=== PATIENT | male | born 1995 | race Caucasian/White ===

== ENCOUNTER 2024-10-05 19:34 | Emergency (ER) | payer OTHER, SELFPAY ==
[2024-10-05 19:49] VITALS: BP 163/91; PULSE 80; RESP 16; TEMP 36.7; O2SAT 99; BMI 23.2
--- NOTE | 2024-10-05 19:49 | ED.GENADULT ---
HPI - General Adult General Chief complaint: Urogenital-Male Stated complaint: Med side effects Time Seen by Provider: 10/05/24 20:21 Source: patient, RN notes reviewed and old records reviewed Mode of arrival: ambulatory History of Present Illness ED Provider: Marcie Caba PA-C HPI narrative: 28-year-old male with a past medical history substance abuse currently on Suboxone, presenting to the ED c/o urinary hesitancy/decreased urination & sexual dysfunction x years which he attributes to his Rx Suboxone and Fluoxetine. Admits he has been taking Suboxone x2 years, has taken Prozac intermittently in the past, however restarted a few months ago, states being on both medications at the same time is new. Requesting node explaining why it takes him so long to urinate as he is currently required to provide frequent drug screens, in his sometimes unable to due to these complaints. Denies ever seeing Urology or discussing side effects with prescriber. Denies abdominal pain, dysuria, hematuria, nausea, vomiting, fever Related Data Allergies Allergy/AdvReac Type Severity Reaction Status Date / Time haloperidol [From Haldol] AdvReac Difficulty Verified 10/05/24 19:52 Swallowing Review of Systems Review of Systems: Yes all other systems are reviewed and are negative Constitutional: Constitutional: Reports as per HPI [facility] Past Medical History Attestation statement: The following information was validated with the patient. Source: old records reviewed Social History Social History Advance Directives: No Advance Directives Information Provided: No Do you have a plan to hurt others: No Plan Physical Exam ED Vital Signs: Vital Signs - 24 hr 10/05/24 19:49 10/05/24 20:59 10/05/24 21:08 Temperature 98.1 F 98 F 98 F Pulse Rate 80 70 70 Respiratory Rate 16 18 18 Blood Pressure 163/91 H 151/80 H 151/80 H Pulse Oximetry 99 99 99 Oxygen Delivery Method Room Air Room Air Room Air BMI result Body Mass Index 23.2 Const General: cooperative, healthy appearing and no acute distress Orientation/consciousness: patient oriented x3 Limitations: no limitations HENMT Head: Yes normal to inspection and Yes atraumatic Ears: hearing grossly normal bilaterally General nose exam: Normal external nose present Face and sinus: Yes normal facial exam Eyes General: appearance normal, both eyes and all related structures EOM: EOMs intact bilaterally Neck Neck: Yes normal visual inspection and Yes no meningeal signs Resp Effort & Inspection: normal respiratory effort and no respiratory distress Cardio Rate: regular rate GI Inspection: Yes normal to inspection Palpation (GI): Soft to palpation, nontender, no guarding and not rigid General: Yes no CVA tenderness Back/Spine/Pelvis Back: no CVA tenderness Skin Rashes: no rashes Wounds: no wounds Neuro General: patient oriented x3, tone normal and no meningeal signs Cranial nerves: Yes CN's II-XII intact bilaterally Gait exam (Neuro): Normal gait present Extrem General: Yes normal to inspection Course Course Course Narrative: RME performed by Elly Stock PA-C. Patient is a 28 year old assigned male at presenting to the emergency department with difficulty urinating. Patient states he has been on Suboxone and Fluoxetine for years and has had issues with urination and ejaculation the entire time. He states that for court he now needs to do regular drug testing but he is having issues urinating in the time frame they require because of the difficulty urinating. Patient states that he would like PCP resources, mental health resources, and a note for court. Detailed physical exam and review of systems are deferred to the fishing hand. Labs ordered. Patient placed back in the waiting room pending room availability and results. -labs reassuring. UA negative -postvoid residual 20ml > discussed with patient at length needed close follow up with Urology as well as his psych medication prescriber due to side effects which he has been experiencing for years. Results discussed with patient including worrisome signs and symptoms and strict return precautions, and when to return to the emergency department. They verbalized understanding and feel safe for discharge at this time. Medical Decision Making Medical Decision Making MDM Narrative: 28-year-old male with a past medical history substance abuse currently on Suboxone, presenting to the ED c/o urinary hesitancy/decreased urination & sexual dysfunction x years which he attributes to his Rx Suboxone and Fluoxetine. On exam vital signs stable, NAD, nontoxic appearing, abdomen soft and nontender, no CVAT. Concern for medication side effects vs UTI vs ROXANNE. Lower suspicion for renal stone, pyelo, testicular torsion. Plan: Labs, UA Please refer to course for remaining clinical decision making, interpretation of labs/imaging results, and discussions with consultants and/or family members. Differential Diagnosis Differential Diagnoses: The differential diagnosis associated with the presentation includes As above Admission/Observation Consideration of admission/observation: Escalation of care including admission/observation considered Lab Data MDM Lab Attestation statement: I reviewed the patient's lab results. 10/05/24 20:03 10/05/24 20:03 Labs: Lab Results 10/05/24 10/05/24 Range/Units 20:03 20:15 WBC 8.6 (4.8-10.8) X10*3/uL RBC 4.23 L (4.60-5.80) X10*6/uL Hgb 13.4 L (14.0-18.0) g/dl Hct 37.9 L (42.0-52.0) % MCV 89.6 (80.0-98.0) fL MCH 31.7 (27.0-33.0) pg MCHC 35.4 (31.0-36.0) g/dl RDW 11.9 (11.0-16.0) % Plt Count 205 (160-400) X10*3/uL MPV 9.6 (9.4-12.4) fL Immature Gran % (Auto) 0.1 (0.0-0.4) % Neut % (Auto) 57.2 (45-73) % Lymph % (Auto) 32.4 (20-40) % [place] % (Auto) 8.3 (2-11) % Eos % (Auto) 1.8 (0-4) % Baso % (Auto) 0.2 (0-2) % Lymph # (Auto) 2.8 (1.2-4.9) X10*3/uL [place] # (Auto) 0.7 (0.1-1.2) X10*3/uL Eos # (Auto) 0.2 (0.0-0.4) X10*3/uL Baso # (Auto) 0.0 (0.0-0.2) X10*3/uL Abs Immat Gran (auto) 0.01 (0.00-0.03) X10*3/uL Absolute Neuts (auto) 4.9 (2.0-8.3) x10*3/uL Absolute Nucleated RBC 0.000 (0.0-0.012) X10*3/uL Nucleated RBC % (auto) 0.0 (0.0-0.2) /100WBC Sodium 142 (135-145) mmol/L Potassium 4.0 (3.3-5.1) mmol/L Chloride 105 (96-108) mmol/L Carbon Dioxide 28 (22-29) mmol/L Anion Gap 13 (12-20) BUN 16 (9-16) mg/dL Creatinine 1.03 (0.5-1.4) mg/dL Estim Creat Clear Calc 80.9 Estimated GFR > 60 Random Glucose 109 (60-115) mg/dL Calcium 9.2 (8.4-10.2) mg/dL Total Bilirubin 0.2 (0.0-1.0) mg/dL AST 30 (5-37) U/L ALT 30 (0-40) U/L Alkaline Phosphatase 59 (39-117) U/L Total Protein 6.9 (6.5-8.0) g/dL Albumin 4.4 (3.5-5.0) g/dL Urine Color Yellow Urine Appearance Clear Urine pH 8.0 (5.0-9.0) Ur Specific [place] 1.025 (1.005-1.025) Urine Protein 30 (1+) H (Neg-Trace) mg/dL Urine Glucose (UA) Negative (Negative) mg/dL Urine Ketones Trace (Negative) mg/dL Urine Blood Negative (Negative) Urine Nitrite Negative (Negative) Ur Leukocyte Esterase Negative (Negative) Urine RBC 0-2 (0-2) /HPF Urine WBC 0-5 (0-5) /HPF Ur Squamous Epith Cells 0-2 (0-2) /HPF Urine Bacteria None Seen (None Seen) Hyaline Casts 0-2 (0-2) /LPF Radiology Impression Discussion of test interpretation with radiology: I have reviewed the radiologist's reading. External Record Review External record reviewed: Inpatient record, Office record, Outpatient record, Prior outpatient labs, Prior outpatient radiology, Primary care record and Outside ED record Tests considered The following testing was considered but not selected: As above Prescription Management I considered prescription management with: Other Chronic Conditions Patient?s care impacted by: Other Social Determinants Patient?s care significantly limited by Social Determinants of Health including: Alcoholism and drug addiction in family Discharge Plan Discharge Clinical Impression: Urinary hesitancy Patient Disposition: Home, Self-Care Instructions: Urinary Urgency and Frequency (DC) Additional Instructions: Your blood work and urine are reassuring It is important for you to establish care with a primary care doctor. You should also follow up with Urology. Discussed your current symptoms with your medication prescriber. If symptoms persist or worsen, you burning when you pee, blood in the urine, abdominal pain or back pain return to the ED Your requested information for a primary care provider and mental health resources. Mental health resources are below and I've attached information for a PCP that is taking new patients. [facility]: Available 24 hours a day, 7 days a week, 365 days a year Dial 988 with any telephone to speak to someone immediately [facility] (Mental / Behavioral health therapist: [address], [place] [phone] [facility] ([facility] at [facility]: [address] [place] [address] Open from 10am - 12pm (walk ins welcome) [facility] Crisis Services: [address] [place] [address] Walk in hours from 10am - 12pm Behavioral health Network: [address] [place] [id number] AND [address] [place] [phone] Monday through Monday 8am - 8pm Monday and Monday 9am - 5pm Referrals: [facility] Primary Care, Galindo Lema [Provider Group] (Call to establish and follow up with a primary care provider.) [facility] Urology Services [Provider Group] - 5 days Stand Alone Forms: Work/School Release Interventions: ED Discharge Assessment Last Done: 10/05/24 21:08 Discharge Date/Time: 10/05/24 21:09 Print Language: Hungarian
[2024-10-05 20:10] LABS: MANUAL DIFF FLAG NO
[2024-10-05 20:11] LABS: Basophils Percent Auto 0.2 % (0-2); Eosinophils Absolute Auto 0.2 X10*3/uL (0.0-0.4); Eosinophils Percent Auto 1.8 % (0-4); Hematocrit 37.9 % (42.0-52.0); Hemoglobin 13.4 g/dl (14.0-18.0); Imm Gran Abs Auto 0.01 X10*3/uL (0.00-0.03); Imm Gran Pct Auto 0.1 % (0.0-0.4); Lymphocytes Absolute Auto 2.8 X10*3/uL (1.2-4.9); Lymphocytes Percent Auto 32.4 % (20-40); Mean Corpuscular HGB Conc 35.4 g/dl (31.0-36.0); Mean Corpuscular Hemoglobin 31.7 pg (27.0-33.0); Mean Corpuscular Volume 89.6 fL (80.0-98.0); Mean Platelet Volume 9.6 fL (9.4-12.4); Monocytes Absolute Auto 0.7 X10*3/uL (0.1-1.2); Monocytes Percent Auto 8.3 % (2-11); Neutrophils Absolute Auto 4.9 x10*3/uL (2.0-8.3); Neutrophils Percent Auto 57.2 % (45-73); Platelet Count 205 X10*3/uL (160-400); Red Blood Count 4.23 X10*6/uL (4.60-5.80); Red Cell Distribution Width 11.9 % (11.0-16.0); White Blood Count 8.6 X10*3/uL (4.8-10.8)
[2024-10-05 20:21] LABS: Appearance Urine Clear; Color Urine Yellow; Glucose Urine UA Negative (Negative); Leukocyte Esterase Urine Negative (Negative); Nitrite Urine Negative (Negative); Specific Gravity - Urine 1.025 (1.005-1.025); UMIC TRIGGER UACC YES; Urine Blood Negative (Negative); Urine Ketones Trace mg/dL (Negative); Urine Protein 30 (1+) mg/dL (Neg-Trace)
--- NOTE | 2024-10-05 20:22 | PC.NURSE ---
pt reports he is having trouble urinating after started new medication. pt reports he does not have pain with urination but it takes 5-10 minutes to start a stream of urine. pt able to void for urine sample, bladder scan obtained of 20ml after urination.
[2024-10-05 20:23] LABS: Bacteria Urine None Seen (None Seen); Hyaline Casts Urine 0-2 /LPF (0-2); RBC Urine 0-2 /HPF (0-2); Squamous Epithelial Cell Urine 0-2 /HPF (0-2); WBC Urine 0-5 /HPF (0-5)
[2024-10-05 20:24] LABS: Alanine Aminotransferase 30 U/L (0-40); Albumin Level 4.4 g/dL (3.5-5.0); Alkaline Phosphatase 59 U/L (39-117); Anion Gap 13 (12-20); Aspartate Amino Transferase 30 U/L (5-37); Bilirubin Total 0.2 mg/dL (0.0-1.0); Blood Urea Nitrogen 16 mg/dL (9-16); Calcium 9.2 mg/dL (8.4-10.2); Carbon Dioxide 28 mmol/L (22-29); Chloride 105 mmol/L (96-108); Creatinine Clr Calc Pharmacy 80.9; Estimated Glomerular Filt Rate > 60; Glucose Random 109 mg/dL (60-115); Sodium 142 mmol/L (135-145); Total Protein 6.9 g/dL (6.5-8.0)
[2024-10-05 20:59] VITALS: BP 151/80; PULSE 70; RESP 18; TEMP 36.6; O2SAT 99
[2024-10-05 21:08] VITALS: BP 151/80; PULSE 70; RESP 18; TEMP 36.6; O2SAT 99
== END 2024-10-05 21:09 | disposition home or self-care (01) ==
PROVIDERS: Physician Assistant Medical; Emergency Provider Emergency Medicine
DX: R39.11 Hesitancy of micturition (principal); F11.20 Opioid dependence, uncomplicated; Z79.899 Other long term (current) drug therapy
CPT/HCPCS: 36415; 80053; 81001; 85025; 99283

== ENCOUNTER → 2025-03-20 23:14 | Outpatient (BNV) | payer OTHER, SELFPAY | PROVIDERS: Emergency Provider Emergency Medicine; Visit Provider Radiology Diagnostic Radiology | DX: M54.2 Cervicalgia (principal) | CPT/HCPCS: 70360 ==

== ENCOUNTER 2025-03-20 23:43 | Emergency (ER) | payer OTHER, SELFPAY ==
--- NOTE | ~2025-03-20 | XR_ITS ---
CLINICAL HISTORY: ? foreing body Neck soft tissue 2 views Comparison: None Provided Findings: Epiglottis normal in thickness. Tonsils and adenoids demonstrate no enlargement. No prevertebral soft tissue swelling noted. No airway displacement or narrowing. No acute bony abnormalities. Moderate cervical degenerative change. No radiopaque foreign bodies. Impression: No acute process. This document has been electronically signed by: Jose Bhatt MD on 03/21/2025 00:37:16
[2025-03-20 23:54] VITALS: BP 127/73; PULSE 100; RESP 18; TEMP 36.6; O2SAT 100; BMI 23.2
--- NOTE | 2025-03-21 00:35 | ED_ITS ---
HPI - General Adult General Chief complaint: Skin/Abscess/Foreign Body Stated complaint: metal stuck in throat Time Seen by Provider: 03/21/25 00:35 History of Present Illness ED Provider: Nikolas RASCON narrative: The patient is a 29-year-old male who believes that he inhaled a piece of metal. He says that he was at work. He says that he was trying to clean out some kind of a pipe that had piece of metal in it. He says that ultimately he accidentally inhaled the piece of metal. He says he then coughed it up but then may have swallowed it. He has pain in the right side of his neck which he believes is because of the piece of metal. He believes the piece of metal is a piece of broken drain and he is quite confident that it was a piece of metal. The patient is on Suboxone. Related Data Allergies Allergy/AdvReac Type Severity Reaction Status Date / Time haloperidol (From Haldol) AdvReac Difficulty Verified 03/20/25 23:55 Swallowing Review of Systems Review of Systems: Yes all other systems are reviewed and are negative [facility] Social History Social History Advance Directives: No Advance Directives Information Provided: Yes Physical Exam ED Vital Signs: Vital Signs - 24 hr 03/20/25 23:54 Temperature 97.8 F Pulse Rate 100 Respiratory Rate 18 Blood Pressure 127/73 Pulse Oximetry 100 Oxygen Delivery Method Room Air BMI result Body Mass Index 23.2 Const Other: The patient is 29-year-old male who was awake and alert and said he was in a great deal of discomfort. He was holding an emesis bag. He seemed to be handling his secretions. He seemed to be able to speak. He was extremely irritable and impatient and difficult to talk with. HENMT Other: Face is symmetrical. The posterior pharynx is normal. Eyes Other: Pupils are round equal, conjunctivae are clear, extraocular movements intact Neck Other: No obvious abnormality to the external neck. The neck appeared normal. Resp Effort & Inspection: normal respiratory effort Auscultation: clear to auscultation bilaterally Cardio Rate: regular rate Rhythm: regular rhythm Heart sounds: S1 normal heart sound present and S2 normal heart sound present Medical Decision Making Medical Decision Making [facility] Narrative: The patient is a 29-year-old male who presented complaining of pain in the right side of his neck that he says was from an accidental inhalation of a piece of a broken metal drain that he was trying to get out of a pipe. The patient was extremely impatient with me and would not describe the incident in a way that I could really understand. In any event the patient stated that he was having neck pain because of an inhaled piece of metal. A plain x-ray of the soft tissues of the neck has been done that was unremarkable. I told the patient that there was no metal apparent in his neck based on the x-ray. He then said that he had 1st inhaled a metal then coughed it up and then may have swallowed it. I explained we could get x-rays of his chest and his abdomen to see if there was any evidence of a metallic foreign body in his chest or his abdomen. I would also told him that I would order an injection of ketorolac for his discomfort ( the patient made a point of stating that he did not wish to have anything narcotic because he is on Suboxone). However before any of these additional steps could happen the patient eloped from the emergency department without completing treatment. Discharge Plan Discharge Clinical Impression: Neck pain on right side Patient Disposition: Left W/O Completing Treatment
--- NOTE | 2025-03-21 01:29 | PC.NURSE ---
Late entry for 0045. film rental clerk could see the patient walkin down the lan from the main department heading towards the [facility] doors. The patient attempted to push through the doors when this RN met him at the door. Pt asked to leave because You guys aren't doing anything for me . This RN encouraged the pt to stay to be seen by a provider (not knowing he had already been seen and medications ordered) and he declined demanding this RN open the damn door .
== END 2025-03-21 00:45 | disposition left against medical advice (07) ==
PROVIDERS: Emergency Provider Emergency Medicine
DX: M54.2 Cervicalgia (principal)
CPT/HCPCS: 70360; 99281; 99283